=== PATIENT | female | born 1995 | race Caucasian/White ===

== ENCOUNTER 2019-05-08 22:00 | Observation (INO) | payer MEDICAID | END 2019-05-08 23:17 | disposition home or self-care (01) | LOC: SPU 22:00 | PROVIDERS: ADMIT Obstetrics & Gynecology; ATTEND Obstetrics & Gynecology | DX: O26.893 Other specified pregnancy related conditions, third trimester (principal); R10.9 Unspecified abdominal pain; Z3A.29 29 weeks gestation of pregnancy | CPT/HCPCS: 81002; G0378 ==

== ENCOUNTER 2019-06-05 01:15 | Observation (INO) | payer MEDICAID ==
[~2019-06-05] VITALS: Ht 160 cm; Wt 80.7 kg
[2019-06-05] MEDS ORDERED: ACETAMINOPHEN 325 MG TABLET PO PRN (02:15)
[2019-06-05 02:45] LABS: BILIRUBIN,URINE 1+ (NEGATIVE); BLOOD, URINE NEGATIVE (NEGATIVE); CLARITY/URINE CLEAR (CLEAR); COLOR,URINE YELLOW (YELLOW); GLUCOSE,URINE NEGATIVE (NEGATIVE); KETONES,URINE TRACE (NEGATIVE); LEUKOCYTE ESTERASE ,URINE 1+ (NEGATIVE); NITRITE, URINE NEGATIVE (NEGATIVE); PH,URINE 5.5 (5.0-8.0); PROTEIN URINE TRACE (NEGATIVE)
[2019-06-05 03:02] LABS: BACTERIA,URINE MANY /HPF (None Seen); RBC,URINE 0-3 /HPF (0-3)
[2019-06-05 03:22] LABS: CALCIUM OXALATE CRYSTALS,UR 0-10 /HPF (None Seen)
== END 2019-06-05 05:20 | disposition home or self-care (01) ==
LOC: SPU 01:15
PROVIDERS: ADMIT Obstetrics & Gynecology; ATTEND Obstetrics & Gynecology
DX: O26.893 Other specified pregnancy related conditions, third trimester (principal); R10.9 Unspecified abdominal pain; Z3A.33 33 weeks gestation of pregnancy
CPT/HCPCS: 76815; 81000; 87086; 87186; G0378

== ENCOUNTER 2019-07-01 09:50 | Observation (INO) | payer MEDICAID ==
[~2019-07-01] VITALS: Ht 160 cm; Wt 77.6 kg
== END 2019-07-01 11:50 | disposition home or self-care (01) ==
LOC: SPU 09:50
PROVIDERS: ADMIT Obstetrics & Gynecology; ATTEND Obstetrics & Gynecology
DX: O26.893 Other specified pregnancy related conditions, third trimester (principal); R10.30 Lower abdominal pain, unspecified; N89.8 Other specified noninflammatory disorders of vagina; Z3A.37 37 weeks gestation of pregnancy
CPT/HCPCS: 59025; 76819; 81002; G0378

== ENCOUNTER 2019-07-14 15:30 | Observation (INO) | payer MEDICAID ==
[~2019-07-14] VITALS: Ht 160 cm; Wt 80.7 kg
== END 2019-07-14 16:45 | disposition home or self-care (01) ==
LOC: SPU 15:30
PROVIDERS: ADMIT Obstetrics & Gynecology; ATTEND Obstetrics & Gynecology
DX: O26.893 Other specified pregnancy related conditions, third trimester (principal); R10.9 Unspecified abdominal pain; Z3A.38 38 weeks gestation of pregnancy
CPT/HCPCS: 81002; G0378

== ENCOUNTER 2019-07-14 20:00 | Inpatient (IN) | payer MEDICAID ==
[~2019-07-14] VITALS: Ht 160 cm; Wt 78.5 kg
[2019-07-14] MEDS ORDERED: OXYTOCIN/0.9 % SODIUM CHLORIDE 1,000 ML IV SCH (21:20)
[2019-07-14] MEDS ORDERED: NALBUPHINE HCL 10 MG/ML AMP IVP PRN (21:30)
[2019-07-14] MEDS ORDERED: DINOPROSTONE 10 MG SUPP VG ONE (21:30)
[2019-07-14] MEDS: LR 1,000 ML IV SCH (21:35)
[2019-07-14 21:44] LABS: BASOPHILS % (AUTO) 0.4 % (0.0-2.0); EOSINOPHILS # (AUTO) 0.1 K/uL (0.0-0.4); EOSINOPHILS % (AUTO) 0.6 % (0.0-4.0); HEMATOCRIT 29.9 % (36-48); HEMOGLOBIN 10.1 g/dL (12.0-16.0); LYMPHOCYTES # (AUTO) 2.2 K/uL (1.0-5.5); LYMPHOCYTES % (AUTO) 20.6 % (20.5-51.5); MEAN CORPUSCULAR HEMOGLOBIN 29 pg (27-31); MEAN CORPUSCULAR HGB CONC 34 % (32-36); MEAN CORPUSCULAR VOLUME 86 fL (79.0-98.0); MONOCYTES # (AUTO) 0.7 K/uL (0.0-1.0); MONOCYTES % (AUTO) 7.1 % (1.7-9.3); NEUTROPHILS # (AUTO) 7.5 K/uL (1.8-7.7); NEUTROPHILS % (AUTO) 71.3 % (40.0-70.0); PLATELET COUNT (AUTO) 177 K/uL (130-430); RED BLOOD CELL COUNT(AUTO) 3.49 MIL/uL (4.2-6.2); RED CELL DISTRIBUTION WIDTH 15.2 % (9.0-15.0); WHITE BLOOD COUNT (AUTO) 10.5 K/uL (4.8-10.8)
[2019-07-15] MEDS: LR 1,000 ML IV SCH ×4 (01:25→17:15)
[2019-07-15] MEDS ORDERED: LR 500 ML IV ONE (02:20)
[2019-07-15] MEDS ORDERED: ROPIVACAINE HCL/PF 0.2% 200 ML ONE (02:28)
[2019-07-15] MEDS ORDERED: fentaNYL CITRATE/PF 100 MCG/2 ML AMP ONE ×2 (02:28→20:20)
[2019-07-15] MEDS ORDERED: FENT2mCg/mL-ROPIVA0.2%/NS EPID 200 ML EP SCH (02:30)
[2019-07-15] MEDS ORDERED: FLU VACC QS2019-20 36MOS UP/PF 60 MCG/0.5 ML SYRINGE I.M. PRN (06:00)
[2019-07-15 06:10] VITALS: BP_SYST 110
[2019-07-15] MEDS ORDERED: ROPIVACAINE HCL/PF 0.2% 100 ML ONE (15:12)
[2019-07-15] MEDS ORDERED: AMPICILLIN SODIUM 2 GM in NS 100 ML IV ONE (17:45)
[2019-07-15] MEDS ORDERED: AMPICILLIN SODIUM 2 GM VIAL ONE (17:53)
[2019-07-15] MEDS ORDERED: LR 1,000 ML IV ONE (18:37)
[2019-07-15] MEDS ORDERED: CEFAZOLIN 2 GM IVPB PREMIX 50 ML IV ONE (18:45)
[2019-07-15] MEDS ORDERED: CEFAZOLIN 2 GM IVPB PREMIX 0 ML IV ONE (18:54)
[2019-07-15] MEDS ORDERED: NALOXONE HCL 1 MG in NACL 0.9% 1,000 ML IV PRN ×4 (19:51)
[2019-07-15] MEDS ORDERED: LR 1,000 ML IV SCH ×2 (19:51→22:06)
[2019-07-15] MEDS ORDERED: HYDROmorphone 1 MG INJ. 1 MG/ML AMPUL IVP PRN (20:00)
[2019-07-15] MEDS ORDERED: KETOROLAC TROMETHAMINE 60 MG/2 ML VIAL IM PRN (20:00)
[2019-07-15] MEDS ORDERED: DIPHENHYDRAMINE HCL 50 MG CAPSULE PO PRN (20:00)
[2019-07-15] MEDS ORDERED: MEPERIDINE HCL/PF 25 MG/ML DISP.SYRIN IVP PRN ×2 (20:00)
[2019-07-15] MEDS ORDERED: ONDANSETRON HCL 4 MG/2 ML VIAL IVP PRN (20:00)
[2019-07-15] MEDS ORDERED: NALOXONE HCL 0.4 MG/ML AMP (NARCAN) IVP PRN ×3 (20:00)
[2019-07-15] MEDS ORDERED: HYDROmorphone 2 MG/ML VIAL IVP PRN ×2 (20:00)
[2019-07-15] MEDS ORDERED: DIPHENHYDRAMINE INJ 50 MG/ML VIAL IVP PRN (20:00)
[2019-07-15 20:15] VITALS: BP_SYST 129
[2019-07-15] MEDS ORDERED: SODIUM BICARBONATE 4% (NEUT) 5 ML VIAL ONE (20:20)
[2019-07-15] MEDS ORDERED: ONDANSETRON HCL 4 MG/2 ML VIAL ONE (20:20)
[2019-07-15] MEDS ORDERED: LIDOCAINE 2%, 20 ML MDV ONE (20:20)
[2019-07-15] MEDS ORDERED: OXYTOCIN/0.9 % SODIUM CHLORIDE 20 UNITS/1,000 ML BAG IV ONE (20:20)
[2019-07-15] MEDS ORDERED: MORPHINE SULFATE 10MG/10ML PF AMP ONE (20:20)
[2019-07-15] MEDS ORDERED: OXYTOCIN 10 UNIT/ML VIAL ONE (20:20)
[2019-07-15] MEDS ORDERED: NS IRRIG SOLN 1000 ML IR ONE (20:20)
[2019-07-15] MEDS ORDERED: LR 1,000 ML IV.SOLN IV ONE (20:20)
[2019-07-15] MEDS ORDERED: OXYTOCIN/0.9 % SODIUM CHLORIDE 1,000 ML IV ONE ×2 (20:44→22:06)
[2019-07-15] MEDS ORDERED: TEMAZEPAM 15 MG CAPSULE PO PRN (21:00)
[2019-07-15] MEDS ORDERED: OXYCODONE/ACETAMINOPHEN 5-325 TABLET PO PRN (22:15)
[2019-07-15] MEDS ORDERED: HYDROcodone/ACETAMIN 5-325 MG TAB (NORCO/ VICODIN) PO PRN (22:15)
[2019-07-15] MEDS ORDERED: DIPH-TET-PERTUS Vaccine 0.5 ML VIAL (ADACEL) I.M. PRN (22:15)
[2019-07-15] MEDS ORDERED: RHO(D) IMMUNE GLOBULIN/MALTOSE 1500 UNITS/1.3 ML (WINHRO) IM PRN (22:15)
[2019-07-15] MEDS ORDERED: BISACODYL 10 MG/SUPPOSITORY RC PRN (22:15)
[2019-07-16] MEDS ORDERED: PIPERACILLIN/TAZOBACTAM 3.375 GM/VIAL (ZOSYN) IV ONE (01:21)
[2019-07-16] MEDS: MEPERIDINE HCL/PF 25 MG/ML DISP.SYRIN IVP PRN ×2 (02:33→06:09)
[2019-07-16] MEDS: PIPERACILLIN/TAZO 3.375/DEX-IS 50 ML IV SCH ×3 (02:35→15:29)
[2019-07-16] MEDS: IBUPROFEN 600 MG TABLET PO SCH ×2 (06:09→11:59)
[2019-07-16 06:37] LABS: BASOPHILS % (AUTO) 0.2 % (0.0-2.0); EOSINOPHILS % (AUTO) 0.1 % (0.0-4.0); HEMATOCRIT 22.9 % (36-48); HEMOGLOBIN 7.7 g/dL (12.0-16.0); LYMPHOCYTES # (AUTO) 1.4 K/uL (1.0-5.5); LYMPHOCYTES % (AUTO) 8.8 % (20.5-51.5); MEAN CORPUSCULAR HEMOGLOBIN 29 pg (27-31); MEAN CORPUSCULAR HGB CONC 34 % (32-36); MEAN CORPUSCULAR VOLUME 87 fL (79.0-98.0); MONOCYTES # (AUTO) 1.1 K/uL (0.0-1.0); MONOCYTES % (AUTO) 7.4 % (1.7-9.3); NEUTROPHILS # (AUTO) 12.9 K/uL (1.8-7.7); NEUTROPHILS % (AUTO) 83.5 % (40.0-70.0); PLATELET COUNT (AUTO) 144 K/uL (130-430); RED BLOOD CELL COUNT(AUTO) 2.64 MIL/uL (4.2-6.2); RED CELL DISTRIBUTION WIDTH 15.5 % (9.0-15.0); WHITE BLOOD COUNT (AUTO) 15.5 K/uL (4.8-10.8)
[2019-07-16] MEDS ORDERED: LIDOCAINE PF 2%, 200 MG/10 ML AMPUL.LUER (EPIDURAL) INJ ONE (10:13)
[2019-07-16] MEDS: DOCUSATE SODIUM 100 MG CAPSULE PO PRN (12:00)
[2019-07-16] MEDS: SIMETHICONE 80 MG TAB.CHEW PO PRN ×2 (12:00→15:54)
[2019-07-16] MEDS: OXYCODONE/ACETAMINOPHEN 5-325 TABLET PO PRN ×2 (15:54→20:45)
[2019-07-17] MEDS: OXYCODONE/ACETAMINOPHEN 5-325 TABLET PO PRN ×5 (00:10→21:53)
[2019-07-17] MEDS: IBUPROFEN 600 MG TABLET PO SCH ×4 (06:00→18:10)
[2019-07-17] MEDS: SIMETHICONE 80 MG TAB.CHEW PO PRN ×3 (12:35→21:53)
[2019-07-17] MEDS: DOCUSATE SODIUM 100 MG CAPSULE PO PRN ×3 (12:35→21:53)
[2019-07-17] MEDS: SENNOSIDES/DOCUSATE SODIUM 1 TAB TABLET(SENOKOT-S) PO PRN (18:09)
[2019-07-18] MEDS: IBUPROFEN 600 MG TABLET PO SCH ×2 (00:37→05:52)
[2019-07-18] MEDS: SIMETHICONE 80 MG TAB.CHEW PO PRN ×2 (00:37→05:52)
[2019-07-18] MEDS: SENNOSIDES/DOCUSATE SODIUM 1 TAB TABLET(SENOKOT-S) PO PRN (05:52)
[2019-07-18] MEDS ORDERED: ROPIVACAINE 40 MG/20 ML AMP EP ONE (10:28)
== END 2019-07-18 09:25 | disposition home or self-care (01) | DRG 540 ==
LOC: SPU 21:05
PROVIDERS: ADMIT Obstetrics & Gynecology; ATTEND Obstetrics & Gynecology
PROC: 3E0P7VZ Introduction of Hormone into Female Reproductive, Via Natural or Artificial Opening (ICD-10-PCS; 2019-07-14)
PROC: 3E033VJ Introduction of Other Hormone into Peripheral Vein, Percutaneous Approach (ICD-10-PCS; 2019-07-14)
PROC: 10D00Z1 Extraction of Products of Conception, Low, Open Approach (ICD-10-PCS; principal; 2019-07-15 18:45)
DX: O62.2 Other uterine inertia (principal); O41.1230 Chorioamnionitis, third trimester, not applicable or unspecified; O76 Abnormality in fetal heart rate and rhythm complicating labor and delivery; R71.0 Precipitous drop in hematocrit; Z37.0 Single live birth; Z3A.39 39 weeks gestation of pregnancy
CPT/HCPCS: 36415; 81002-TC; 85025; 86592; 86886; 86900; 86901; 94760; J0290; J0690; J1885; J2001; J2175; J2274; J2300; J2405; J2543; J2590; J2795; J3010; J7120